=== PATIENT | female | born 2005 | race Caucasian/White ===

== ENCOUNTER 2023-03-26 11:39 | Emergency (ER) | payer OTHER, SELFPAY ==
[2023-03-26 12:03] VITALS: BP 108/69; PULSE 62; RESP 16; TEMP 36.6; O2SAT 100
[2023-03-26 13:38] LABS: Basophils Percent Auto 0.6 % (0.2-1.2); Eosinophils Absolute Auto 0.1 K/mm3 (0-0.3); Eosinophils Percent Auto 0.7 % (0-4.4); Hematocrit 42.8 % (37.0-47.0); Hemoglobin 13.9 g/dL (12.0-15.0); Immature Granulocyte Absolute 0.03 K/mm3 (0.00-0.031); Immature Granulocyte Percent A 0.4 % (0-0.5); Lymphocytes Absolute Auto 1.73 K/mm3 (0.9-3.2); Lymphocytes Percent Auto 24.1 % (18.3-44.2); Mean Corpuscular HGB Conc 32.5 g/dl (32-36); Mean Corpuscular Hemoglobin 29.3 pg (26-34); Mean Corpuscular Volume 90.1 fl (80-100); Monocytes Absolute Auto 0.6 K/mm3 (0.1-0.6); Monocytes Percent Auto 8.6 % (2.6-8.5); Neutrophils Absolute Auto 4.7 K/mm3 (1.3-6.7); Neutrophils Percent Auto 65.6 % (45.5-73.1); Platelet Count Result 277 k/mm3 (150-375); Red Blood Count 4.75 M/mm3 (4.2-5.4); Red Cell Distribution Width 12.9 % (11.5-14.5); White Blood Count 7.2 K/mm3 (4.5-10.0)
--- NOTE | 2023-03-26 13:38 | ED.NAVMDI ---
HPI - Nausea/Vomiting/Diarrhea General Chief complaint: Nausea/Vomiting/Diarrhea Stated complaint: nausea and vomiting - on abx for UTI Time Seen by Provider: 03/26/23 13:19 Source: patient and RN notes reviewed Mode of arrival: ambulatory Limitations: no limitations History of Present Illness HPI Narrative: This is a 18 year old female who presents for evaluation of nausea and vomiting. Patient reports she has been unable tolerate and food or water for 2 days. She has continued to have nonbilious vomiting today. She reports having diarrhea at onset 2 days ago but she has not had bowel movement in 2 days. She also reports increased warmth at night and she reports feeling shortness of breath at night. She feels better with ice under her nose. She has not measured a fever. She denies sick contacts. She reports increased urination but denies dysuria. She was evaluated at [place] 2 days and she was diagnosed with UTI. She reports she only had urine checked and she was prescribed antibiotics. Related Data Allergies Allergy/AdvReac Type Severity Reaction Status Date / Time No Known Allergies Allergy Unverified 03/26/23 11:40 Review of Systems Constitutional: Constitutional: Reports fever(s) (subjective) and Denies weakness Cardiovascular: Cardiovascular: Denies syncope, Denies rapid heart rate, Denies irregular heart rhythm, Denies leg edema and Denies dyspnea Respiratory: Respiratory: Denies chest congestion, Denies hemoptysis, Denies excessive phlegm production and Reports dyspnea Gastrointestinal: Gastrointestinal: Reports abdominal pain, Denies hematochezia, Reports diarrhea, Reports nausea and Reports vomiting Genitourinary: Genitourinary: Denies hematuria, Reports nocturia and Denies dysuria Musculoskeletal: Musculoskeletal: Denies joint swelling, Denies loss of height and Denies muscle weakness Neurologic: Denies syncope, Denies focal weakness and Denies weakness PMFSH Past Medical History Medical History (Updated 03/26/23 @ 16:29 by Delilah Greene MD) Patient denies medical problems Surgical History Surgical History (Updated 03/26/23 @ 13:40 by Delilah Greene MD) No significant past surgical history Social History Social History (Updated 03/26/23 @ 13:39 by Delilah Greene MD) Smoking status: Never smoker Substance use: current Substance use type: marijuana Exam Const: General: no acute distress and alert Orientation/consciousness: patient oriented x3 HENMT: Head: normal to inspection Mouth: Yes moist mucous membranes (but dry lips) Eyes: EOM: EOMs intact bilaterally Resp: Effort & Inspection: normal respiratory effort Auscultation: clear to auscultation bilaterally GI: GI Palp: Yes Soft to palpation, Yes Tenderness to palpation present (GI) (mild epigastric ) and No Guarding due to palpation present (GI) Auscultation: normal bowel sounds Back/Spine/Pelvis: Back: no CVA tenderness Skin: General skin exam: normal color Rashes: no rashes Neuro: General: patient oriented x3, moves all extremities and CN's II-XI intact bilaterally Extrem: General: normal to inspection Psych: Mental Status: mental status grossly normal Affect: normal affect Attitude: cooperative Course Reevaluation(s) Reevaluation #1: Patient states she feels much better and back to normal. She is able to tolerate PO. I Discussed labs and urine. She will be discharged with prescription of zofran Date: 03/26/23 Time: 16:25 Vital Signs Vital signs: Vital Signs Temperature 97.8 F 03/26/23 12:03 Pulse Rate 62 03/26/23 12:03 Respiratory Rate 16 03/26/23 12:03 Blood Pressure 108/69 03/26/23 12:03 Pulse Oximetry 100 03/26/23 12:03 Oxygen Delivery Room Air 03/26/23 12:03 Temperature 97.8 F 03/26/23 12:03 Pulse Rate 62 03/26/23 12:03 Respiratory Rate 16 03/26/23 12:03 Blood Pressure 108/69 03/26/23 12:03 Pulse Oximetry 100 03/26/23 12:03 Oxygen Delivery Room
[2023-03-26 13:41] LABS: Alanine Aminotransferase 11 U/L (6-35); Albumin Level 4.6 g/dL (3.5-5.1); Alkaline Phosphatase 51 U/L (38-126); Anion Gap 8 mmol/L (8-16); Aspartate Amino Transferase 23 U/L (14-36); Bilirubin,Total 0.9 mg/dL (0.2-1.3); Blood Urea Nitrogen 17 mg/dL (7-17); Calcium 9.3 mg/dL (8.4-10.2); Carbon Dioxide 27 mmol/L (22-30); Chloride 102 mmol/L (98-107); Estimated CRCL calculation 49 ml/min; Estimated Glomerular Filt Rate > 60; Glucose 87 mg/dL (65-110); Lipase 75 U/L (23-300); Potassium 3.6 mmol/L (3.4-5.0); Sodium 137 mmol/L (137-145)
[2023-03-26 13:48] LABS: Appearance Urine Clear (Clear); Bacteria Urine None Seen /hpf; Blood Urine Negative (Negative); Color Urine Dark Yellow (Yellow); Glucose Urine UA Negative (Negative); Mucus Urine Present /lpf; Need Manual Microscopic Need Manual; RBC Urine 0-2 /hpf (0-2); Specific Grav Ur 1.016 (1.001-1.035); Squamous Epithelial Cell Urine Occasional /hpf (Few); WBC Urine 0-5 /hpf
[2023-03-26] MEDS: LACTATED RINGERS 1,000 ML 999 ML IV CONT (13:49)
[2023-03-26] MEDS: KETOROLAC 15 MG/ML VIAL (*BKC) IV PUSH (13:49)
[2023-03-26] MEDS: PANTOPRAZOLE SODIUM IV 40 MG VIAL IV PUSH (13:50)
[2023-03-26] MEDS: ONDANSETRON INJ 4 MG/2 ML VIAL IV PUSH (13:50)
[2023-03-26 13:56] LABS: Add Urine Microscopic? YES
--- NOTE | 2023-03-26 16:10 | PC.NURSE ---
pt able to pass PO challenge. pt reports she feels a lot better after medications.
== END 2023-03-26 16:39 | disposition home or self-care (01) ==
PROVIDERS: Emergency Provider General Practice
DX: K52.9 Noninfective gastroenteritis and colitis, unspecified (principal); E86.0 Dehydration
CPT/HCPCS: 36415; 80053; 81001; 81025; 83690; 85025; 96361; 96374; 96375; 99284; C9113; J1885; J2405; J7120

== ENCOUNTER 2023-12-11 09:07 | Emergency (ER) | payer OTHER, SELFPAY ==
--- NOTE | ~2023-12-11 | CT_ITS ---
CT of the Abdomen and Pelvis: Indication: Abdominal pain Technique: 2.5 mm axial scans were obtained through the abdomen and pelvis following intravenous adm inistration of 100 cc of Omnipaque 350. Dose reduction technique was used on this scan by utilizing a utomated exposure control and iterative reconstruction technique. The dose-length product (DLP) was 1 90.95 mGy-cm. Findings: Scans through the lung bases are unremarkable. The liver, spleen, pancreas, gallbladder, adrenals and kidneys are within normal limits. No evidence of aortic aneurysm. No lymphadenopathy. No bowel obstruction or bowel wall thickening. There is no evidence to suggest acute appendicitis. Images through the pelvis were performed. Urinary bladder unremarkable. No pelvic mass seen. No ascit es. Impression: No significant abnormalities seen. Reviewed, dictated and finalized at location . Impression: No significant abnormalities seen.
--- NOTE | ~2023-12-11 | US_ITS ---
EXAMINATION: US pelvic complete w TV DATE: 12/11/2023 11:20 INDICATION: Vaginal bleeding. Lower abdominal pain for 2 weeks. Comparison:No prior studies for comparison. TECHNIQUE: Multiple transabdominal and endovaginal sonographic images of the pelvis performed. FINDINGS: The uterus measures 5.4 x 2.1 x 3.8 cm. The endometrial complex measures 3.4 mm. The right ovary measures 3 x 2.8 x 3.3 cm and the left ovary measures 2.4 x 2.7 x 3.7 cm. There are small follicles in each ovary. Normal doppler signal in both ovaries. There is no free fluid in the pelvis. There are no abnormal masses seen on either side. IMPRESSION: 1. Unremarkable pelvic ultrasound Reviewed, dictated and finalized at location B.
[2023-12-11 09:25] VITALS: BP 112/63; PULSE 83; RESP 16; TEMP 36.6; O2SAT 100
--- NOTE | 2023-12-11 09:26 | ECG_ITS ---
SEE SCANNED COPY FOR CONFIRMED REPORT MTDD
--- NOTE | 2023-12-11 09:27 | ED.ABDPAIN ---
HPI - Abdominal Pain General Chief Complaint: Abdominal Pain Stated Complaint: abd pain Time Seen by Provider: 12/11/23 09:21 History of Present Illness HPI narrative: 18-year-old female presents to emergency department for generalized abdominal pain, nausea, vomiting and diarrhea for the past 2 weeks. Patient states she has pain all over her abdomen that wraps to her back, however does report that the pain seems to be more lower. He has also noticed blood when she wipes after going to the bathroom. She is unable to identify where the blood is coming from. She has a Nexplanon in place and therefore does not have regular periods. States she intermittently has vaginal spotting with her Nexplanon. She denies recent antibiotic use, travel, recent surgeries or hospitalizations. She has no prior abdominal surgeries or medical history. She admits to using marijuana but denies other drug or alcohol use. Denies dysuria or fevers. After further questioning, patient states she has been seen by a clinic recently and has an outpatient pelvic ultrasound scheduled, however she has not yet completed it. Related Data Allergies Allergy/AdvReac Type Severity Reaction Status Date / Time No Known Allergies Allergy Unverified 03/26/23 11:40 Review of Systems Review of Systems: CONSTITUTIONAL: Denies fever, chills, or sweats. EYES: Denies visual changes, redness, or discharge. ENT: Denies rhinorrhea, congestion, sore throat, or otalgia. CARDIOVASCULAR: Denies chest pain, palpitations, or edema. RESPIRATORY: Denies cough or dyspnea. GASTROINTESTINAL: See HPI GENITOURINARY: See HPI SKIN: Denies rash or itching. MUSCULOSKELETAL: Denies back pain, joint pain, or myalgia. NEUROLOGIC: Denies headache, numbness, or weakness. PSYCHIATRIC: Denies anxiety or depression. PMFSH Past Medical History Medical History Patient denies medical problems Surgical History Surgical History No significant past surgical history Social History Social History Smoking status: Never smoker Substance use: current Substance use type: marijuana Exam Narrative: GENERAL: Well-appearing, well-nourished, and in no acute distress. HEAD: Normocephalic, atraumatic. EYES: PERRLA and EOMI. ENT: Nares clear, no rhinorrhea or epistaxis. Mucous membranes moist. NECK: Supple. CHEST: Clear to auscultation. No respiratory distress. HEART: Regular rate and rhythm. No murmur heard. Normal peripheral pulses. ABDOMEN: Soft, nontender, nondistended, normal active bowel sounds. No rebound, guarding or rigidity. No CVA tenderness. Hemoccult negative, no melena or hematochezia visualized. : Normal external genitalia without lesions or rashes. Scant amount of dark blood in the vaginal vault, cervical os is closed. No mucopurulent discharge. No cervical motion tenderness, adnexal masses or tenderness.. EXTREMITIES: Normal range of motion. No edema. SKIN: Warm, dry, no rash. NEURO: No focal deficits. Alert and oriented x3 Course Vital Signs Vital signs: Vital Signs Temperature 97.9 F 12/11/23 09:25 Pulse Rate 83 12/11/23 09:25 Respiratory Rate 16 12/11/23 09:25 Blood Pressure 112/63 12/11/23 09:25 Pulse Oximetry 100 12/11/23 09:25 Temperature 98.0 F 12/11/23 11:26 Pulse Rate 55 L 12/11/23 11:26 Respiratory Rate 16 12/11/23 10:02 Blood Pressure 90/41 L 12/11/23 11:26 Pulse Oximetry 100 12/11/23 11:26 MDM - Abdominal Pain MDM Narrative Medical decision making narrative: 18-year-old female presents to emergency department for diffuse generalized abdominal pain, nausea vomiting and diarrhea for the past 2 weeks. Also complaining of blood when she wipes but is unsure where it is coming from. See HPI for further history. Triage vitals stable. Marco
[2023-12-11 09:47] VITALS: BP 111/80; PULSE 48; RESP 16; O2SAT 100
[2023-12-11 09:54] LABS: Basophils Percent Auto 0.6 % (0.2-1.2); Eosinophils Percent Auto 0.5 % (0-4.4); Hematocrit 42.9 % (37.0-47.0); Hemoglobin 14.3 g/dL (12.0-15.0); Immature Granulocyte Absolute 0.02 K/mm3 (0.00-0.031); Immature Granulocyte Percent A 0.3 % (0-0.5); Lymphocytes Absolute Auto 2.13 K/mm3 (0.9-3.2); Lymphocytes Percent Auto 32.6 % (18.3-44.2); Mean Corpuscular HGB Conc 33.3 g/dl (32-36); Mean Corpuscular Hemoglobin 30.5 pg (26-34); Mean Corpuscular Volume 91.5 fl (80-100); Monocytes Absolute Auto 0.6 K/mm3 (0.1-0.6); Monocytes Percent Auto 8.9 % (2.6-8.5); Neutrophils Absolute Auto 3.7 K/mm3 (1.3-6.7); Neutrophils Percent Auto 57.1 % (45.5-73.1); Platelet Count Result 227 k/mm3 (150-375); Red Blood Count 4.69 M/mm3 (4.2-5.4); Red Cell Distribution Width 12.9 % (11.5-14.5); White Blood Count 6.5 K/mm3 (4.5-10.0)
[2023-12-11 10:02] VITALS: BP 108/64; PULSE 55; RESP 16; TEMP 36.7; O2SAT 100
[2023-12-11 10:04] LABS: Lactic Acid Reflex 0.9 mmol/L (0.7-2.0)
[2023-12-11 10:05] LABS: Alanine Aminotransferase 12 U/L (6-35); Alkaline Phosphatase 54 U/L (38-126); Anion Gap 9 mmol/L (4-12); Aspartate Amino Transferase 18 U/L (14-36); Blood Urea Nitrogen 11 mg/dL (7-17); Calcium 9.6 mg/dL (8.4-10.2); Carbon Dioxide 25 mmol/L (22-30); Chloride 107 mmol/L (98-107); Estimated CRCL calculation 91 ml/min; Estimated Glomerular Filt Rate > 60; Glucose 87 mg/dL (65-110); Lipase 101 U/L (23-300); Potassium 3.6 mmol/L (3.4-5.0); Sodium 141 mmol/L (137-145)
[2023-12-11 10:06] LABS: INR 1.1; Prothrombin Time 15.1 Seconds (11.1-14.7)
[2023-12-11 10:07] LABS: Partial Thromboplastin Time 27.1 Seconds (22.3-36.8)
[2023-12-11 10:08] LABS: Appearance Urine Clear (Clear); Bacteria Urine None Seen /hpf; Bilirubin Urine Negative (Negative); Blood Urine Trace (Negative); Color Urine Yellow (Yellow); Glucose Urine UA Negative (Negative); Ketones Urine 1+ mg/dL (Negative); Leukocyte Esterase Ur Negative LEU/UL (Negative); Need Manual Microscopic Reviewed; Nitrate Urine Negative (Negative); Non Pathogenic Casts 0-2; Protein Urine 2+ mg/dL (Negative); RBC Urine 0-2 /hpf (0-2); Specific Grav Ur 1.029 (1.001-1.035); Squamous Epithelial Cell Urine Few /hpf (Few); WBC Urine 21-50 /hpf (0-3); pH Urine 5.5 (5.0-9.0)
[2023-12-11 10:09] LABS: Add Urine Microscopic? YES
[2023-12-11] MEDS: ONDANSETRON INJ 4 MG/2 ML VIAL IV PUSH (10:13)
[2023-12-11] MEDS: SODIUM CHLORIDE 0.9% IV 1,000 ML 999 ML IV CONT (10:13)
[2023-12-11] MEDS: FAMOTIDINE 20 MG/2 ML VIAL IV PUSH (10:13)
[2023-12-11] MEDS: DICYCLOMINE HCL INJ 20 MG/2 ML VIAL IM (10:13)
[2023-12-11 11:26] VITALS: BP 90/41; PULSE 55; TEMP 36.7; O2SAT 100
[2023-12-11] MEDS: CEPHALEXIN 500 MG CAPSULE PO (12:18)
[2023-12-11 12:32] LABS: Trichomonas Vag PCR NOT DETECTED (NOT DETECTE)
[2023-12-11 12:57] LABS: Chlamydia trachomatis NOT DETECTED (NOT DETECTE); Neisseria gonorrhoeae PCR NOT DETECTED (NOT DETECTE)
[2023-12-14 16:48] LABS: Bacterial Vaginosis NEGATIVE (NEGATIVE)
== END 2023-12-11 12:39 | disposition home or self-care (01) ==
PROVIDERS: Emergency Provider Physician Assistant
DX: R10.84 Generalized abdominal pain (principal); R82.998 Other abnormal findings in urine; N93.9 Abnormal uterine and vaginal bleeding, unspecified
CPT/HCPCS: 36415; 74177; 76830; 76856; 80053; 81001; 81025; 81513; 83605; 83690; 85025; 85610; 85730; 87070; 87077; 87086; 87088; 87186; 87491; 87591; 87661; 93005; 96361; 96372; 96374; 96375; 99284; A9270; J0500; J2405; J7030; Q9967

== ENCOUNTER 2023-12-27 23:49 | Emergency (ER) | payer OTHER, SELFPAY ==
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
[2023-12-27 23:52] VITALS: BP 132/76; PULSE 96; RESP 20; TEMP 36.3; O2SAT 99
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
[2023-12-28 01:52] VITALS: BP 130/78; PULSE 88; RESP 16; O2SAT 100
== END 2023-12-28 01:52 | disposition home or self-care (01) ==
PROVIDERS: Emergency Provider Physician Assistant
DX: S06.0X0A Concussion without loss of consciousness, initial encounter (principal); W18.09XA Striking against other object with subsequent fall, initial encounter; W10.9XXA Fall (on) (from) unspecified stairs and steps, initial encounter
CPT/HCPCS: 70450; 99284

== ENCOUNTER 2024-02-16 07:55 | Emergency (ER) | payer OTHER, SELFPAY ==
--- NOTE | ~2024-02-16 | US_ITS ---
EXAMINATION: US pelvic complete w TV DATE: 02/16/2024 10:52 INDICATION: Right lower quadrant abdominal pain. TECHNIQUE: Multiple transabdominal and endovaginal sonographic images of the pelvis were obtained. COMPARISON: None. FINDINGS: The uterus measures 5.4 x 2.2 x 3.5r cm. The endometrial complex measures 2-3 mm in thickness. The r ight ovary measures 3.5 x 2.2 x 2.5 cm. The left ovary measures 3.5 x 3.3 x 2.7 cm. There is vascula r flow with both arterial and venous waveforms on color Doppler at both ovaries. There are also a few subcentimeter anechoic follicles at both ovaries. There is no free fluid in the pelvis. IMPRESSION: 1. Normal pelvic ultrasound. Reviewed, dictated and finalized at location B.
[2024-02-16 07:56] VITALS: BP 123/83; PULSE 92; RESP 17; TEMP 36.5; O2SAT 100
[2024-02-16 08:15] LABS: Basophils Absolute Auto 0.1 K/mm3 (0.0-0.1); Basophils Percent Auto 0.4 % (0.2-1.2); Eosinophils Percent Auto 0.2 % (0-4.4); Hematocrit 43.8 % (37.0-47.0); Hemoglobin 14.5 g/dL (12.0-15.0); Immature Granulocyte Absolute 0.04 K/mm3 (0.00-0.031); Immature Granulocyte Percent A 0.3 % (0-0.5); Lymphocytes Absolute Auto 2.06 K/mm3 (0.9-3.2); Lymphocytes Percent Auto 16.9 % (18.3-44.2); Mean Corpuscular HGB Conc 33.1 g/dl (32-36); Mean Corpuscular Hemoglobin 30.2 pg (26-34); Mean Corpuscular Volume 91.3 fl (80-100); Mean Platelet Volume 10.6 fl (7.4-10.4); Monocytes Percent Auto 8.1 % (2.6-8.5); Neutrophils Absolute Auto 9.1 K/mm3 (1.3-6.7); Neutrophils Percent Auto 74.1 % (45.5-73.1); Platelet Count Result 220 k/mm3 (150-375); Red Cell Distribution Width 12.9 % (11.5-14.5); White Blood Count 12.2 K/mm3 (4.5-10.0)
[2024-02-16 08:21] LABS: Appearance Urine Turbid (Clear); Bacteria Urine 2+ /hpf; Bilirubin Urine Negative (Negative); Blood Urine 3+ (Negative); Color Urine Yellow (Yellow); Glucose Urine UA Negative (Negative); Ketones Urine Negative (Negative); Leukocyte Esterase Ur 2+ LEU/UL (Negative); Nitrate Urine Positive (Negative); Non Pathogenic Casts 0-2; Protein Urine 3+ mg/dL (Negative); RBC Urine 21-50 /hpf (0-2); Specific Grav Ur 1.024 (1.001-1.035); Squamous Epithelial Cell Urine Occasional /hpf (Few); WBC Urine >100 /hpf (0-3); pH Urine 7.5 (5.0-9.0)
[2024-02-16 08:22] LABS: Add Urine Microscopic? YES
[2024-02-16 08:26] LABS: Alanine Aminotransferase 11 U/L (6-35); Albumin Level 5.1 g/dL (3.5-5.1); Alkaline Phosphatase 62 U/L (38-126); Anion Gap 11 mmol/L (4-12); Aspartate Amino Transferase 18 U/L (14-36); Bilirubin,Total 0.5 mg/dL (0.2-1.3); Blood Urea Nitrogen 10 mg/dL (7-17); Calcium 9.5 mg/dL (8.4-10.2); Carbon Dioxide 25 mmol/L (22-30); Chloride 106 mmol/L (98-107); Estimated CRCL calculation 90 ml/min; Estimated Glomerular Filt Rate > 60; Glucose 92 mg/dL (65-110); Lipase 82 U/L (23-300); Potassium 3.9 mmol/L (3.4-5.0); Sodium 142 mmol/L (137-145)
--- NOTE | 2024-02-16 09:09 | ED.ABDPAIN ---
HPI - Abdominal Pain General Chief Complaint: Abdominal Pain Stated Complaint: abd pain Time Seen by Provider: 02/16/24 08:39 History of Present Illness HPI narrative: 19-year-old female present to the emergency department for evaluation of lower abdominal pain. Patient states he has been having the pain intermittently over the last few weeks. Patient did follow-up with her OB Gyne and did have an outpatient ultrasound ordered at [facility]. Patient states she tried to get the results of the imaging but states that they did not have any results. Patient is requesting a another ultrasound. Patient is also complaining of flank pain and urinary symptoms. Related Data Allergies Allergy/AdvReac Type Severity Reaction Status Date / Time No Known Allergies Allergy Verified 02/16/24 08:06 Review of Systems Review of Systems: All systems reviewed & are unremarkable except as noted in HPI and below PMFSH Past Medical History Medical History Patient denies medical problems Surgical History Surgical History No significant past surgical history Social History Social History Smoking status: Never smoker Substance use: current Substance use type: marijuana Exam Narrative: APPEARANCE: Well appearing, no pain, no distress, well-nourished. HEAD: normocephalic, atraumatic. EYES: PERRLA/EOMI, conjunctivae clear. NOSE: Normal no drainage EARS:TMS clear with good light reflex. THROAT: Pharynx clear, no exudate. NECK: Supple. No adenopathy, no masses. RESPIRATORY: Airway patent, respirations nonlabored. Clear to auscultation bilaterally, no rales, rhonchi, wheezing. CARDIOVASCULAR: Regular rate and rhythm without murmurs rubs or gallops. ABDOMINAL: Bilateral CVA tenderness to palpation, superior tenderness to palpation MUSCULOSKELETAL: Moves all extremities. Strength/ROM intact, No edema, No calf tenderness. NEURO: Alert. Cranial nerves II through XII intact. Grossly intact SKIN: Warm, dry. Normal Color Course Vital Signs Vital signs: Vital Signs Temperature 97.7 F 02/16/24 07:56 Pulse Rate 92 02/16/24 07:56 Respiratory Rate 17 02/16/24 07:56 Blood Pressure 123/83 02/16/24 07:56 Pulse Oximetry 100 02/16/24 07:56 Oxygen Delivery Room Air 02/16/24 07:56 Temperature 97.7 F 02/16/24 07:56 Pulse Rate 78 02/16/24 11:35 Respiratory Rate 16 02/16/24 11:35 Blood Pressure 120/74 02/16/24 11:35 Pulse Oximetry 100 02/16/24 11:35 Oxygen Delivery Room Air 02/16/24 07:56 MDM - Abdominal Pain MDM Narrative Medical decision making narrative: 19-year-old female presenting emergency department for evaluation lower abdominal pain and flank pain. Patient was also concerned about getting a pelvic ultrasound. Patient is afebrile but does have a leukocytosis of 12.2 and a stable hemoglobin. No acute abnormalities on the patient's CMP urine was concerning for urinary tract infection due to being positive for nitrites and esterase and greater than 100 white blood cells. Patient denies any vaginal discharge vaginal bleeding denies any concern for STIs. Pelvic ultrasound showed no acute abnormalities. Patient was started on Rocephin for urinary tract infection discharge home with Keflex and Pyridium. Patient was encouraged to drink plenty of fluids and have close follow-up with her primary care physician. Differential Diagnosis Differential diagnosis: Likely abdominal pain, acute appendicitis, constipation, diverticulitis, pancreatitis and small bowel obstruction Lab Data Attestation: I reviewed the patient's lab results. 02/16/24 08:08 02/16/24 08:08 Labs: Lab Results 02/16/24 Range/Units 08:08 WBC 12.2 H (4.5-10.0) K/mm3 RBC 4.80 (4.2-5.4) M/mm3 Hgb 14.5 (12.0-15.
[2024-02-16] MEDS: KETOROLAC 15 MG/ML VIAL (*BKC) IV PUSH (11:21)
[2024-02-16 11:35] VITALS: BP 120/74; PULSE 78; RESP 16; O2SAT 100
== END 2024-02-16 11:37 | disposition home or self-care (01) ==
PROVIDERS: Emergency Provider Emergency Medicine
DX: N39.0 Urinary tract infection, site not specified (principal)
CPT/HCPCS: 36415; 76830; 76856; 80053; 81001; 81025; 83690; 85025; 87077; 87086; 87088; 87186; 96365; 96375; 99284; J0696; J1885

== ENCOUNTER 2024-04-09 16:38 | Emergency (ER) | payer OTHER, SELFPAY ==
[2024-04-09 16:49] VITALS: BP 130/63; PULSE 61; RESP 14; TEMP 37.2; O2SAT 98
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
[2024-04-09] MEDS: CEPHALEXIN 500 MG CAPSULE PO (17:20)
== END 2024-04-09 17:33 | disposition home or self-care (01) ==
PROVIDERS: Emergency Provider Emergency Medicine; PCP Emergency Medicine
DX: Z48.02 Encounter for removal of sutures (principal)
CPT/HCPCS: 15853; 99283; A9270